=== PATIENT | female | born 1990 | race Caucasian/White ===

== ENCOUNTER 2018-09-02 00:50 | Emergency (ER) | payer OTHER ==
[2018-09-02] MEDS ORDERED: NS 1,000 ML IV ONE (00:55)
--- NOTE | 2018-09-02 01:00 | EDPHY ---
H & P Stated Complaint: near syncope Time Seen by Provider: 09/02/18 00:59 HPI/ROS: Chief Complaint: Dizzy, lightheaded, near syncope HPI: 28-year-old woman with a history of ulcerative colitis was at home cooking when she had sudden onset of lightheadedness and some tunnel vision. She did not lose consciousness although she felt that she would. She sat down felt a little bit better. Patient was seen at [facility] and routine labs were today which were reportedly normal. The no chest pain or palpitations. She has not have a family history of coronary artery disease or sudden cardiac . Does not have a history of similar episodes in the past. Does not believe she is . States she has had a little bit more mucus but no blood per rectum recently. No abnormal vaginal bleeding. No shortness of breath. ROS: 10 systems were reviewed and were negative except those elements noted in the HPI. PMH: Ulcerative colitis Social History: No smoking, no alcohol, no recreational drug use Family History: non-contributory Physical Exam: Gen: Awake, Alert, No Distress HEENT: Nose: no rhinorrhea Eyes: PERRLA, EOMI Mouth: Moist mucosa Neck: Supple, no JVD Chest: nontender, lungs clear to auscultation Heart: S1, S2 normal, no murmur Abd: Soft, non-tender, no guarding Back: no CVA tenderness, no midline tenderness Ext: no edema, non-tender Skin: no rash Neuro: CN II-XII intact, Sensation grossly intact, Strength 5/5 in bilateral upper and lower extremities - Personal History LMP (Females 10-55): IUD In Place Current Tetanus/Diphtheria Vaccine: Yes - Medical/Surgical History Hx Asthma: No Hx Chronic Respiratory Disease: No Hx Diabetes: No Hx Cardiac Disease: No Hx Renal Disease: No Hx Cirrhosis: No Hx Alcoholism: No Hx HIV/AIDS: No Hx Splenectomy or Spleen Trauma: No Other PMH: UC - Social History Smoking Status: Current some day smoker Constitutional: Initial Vital Signs Temperature (C) 36.8 C 09/02/18 00:56 Heart Rate 93 09/02/18 00:56 Respiratory Rate 18 09/02/18 00:56 Blood Pressure 125/54 H 09/02/18 00:56 O2 Sat (%) 100 09/02/18 00:56 O2 Delivery Mode Room Air Allergies/Adverse Reactions: No Known Allergies Allergy (Unverified 09/02/18 00:58) Home Medications: Medication Instructions Recorded Amitriptyline HCl 09/02/18 Humira 09/02/18 Imuran 50 mg (*) 09/02/18 Mesalamine 09/02/18 Ranitidine HCl 09/02/18 Vitamin D3 09/02/18 Medical Decision Making - Diagnostics EKG Interpretation: ECG time 12:59 a.m., sinus rhythm with a rate of 83, normal axis, normal intervals, no acute ST or T-wave changes. Impression: Normal ECG. ED Course/Re-evaluation: 28-year-old woman with a near syncopal episode. Laboratory evaluations are unremarkable. ECG is normal. Vital signs are completely normal. She is complaining of some mild symptoms that she might have a gout ulcerative colitis flare but she has not been having any blood per rectum. Her blood counts are normal and she has no elevation in her white blood cell count. She has been hydrated here. She has ambulated without difficulty. Plan will be for discharge with follow-up with primary care physician. - Data Points Laboratory Results: Laboratory Results 09/02/18 01:10 09/02/18 01:10 09/02/18 09/02/18 09/02/18 01:10 01:10 01:10 WBC 8.42 10^3/uL 10^3/uL (3.80-9.50) RBC 3.95 10^6/uL L 10^6/uL (4.18-5.33) Hgb 12.6 g/dL g/dL (12.6-16.3) Hct 37.0 % L % (38.0-47.0) MCV 93.7 fL fL (81.5-99.8) MCH 31.9 pg pg (27.9-34.1) MCHC 34.1 g/dL g/dL (32.4-36.7) RDW 12.9 % % (11.5-15.2) Plt Count 370 10^3/uL 10^3/uL (150-400) MPV 8.8 fL fL (8.7-11.7) Neut % (Auto) 38.0 % L % (39.3-74.2) Lymph % (Auto) 50.6 % H % (15.0-45.0) [place] % (Auto) 8.7 % % (4.5-13.0) Eos % (Auto) 1.9 % % (0.6-7.6) Baso % (Auto) 0.6 % % (0.3-1.7) Nucleat RBC Rel Count 0.0 % % (0.0-0.2) Absolute Neuts (auto) 3.20 10^3/uL 10^3/uL (1.70-6.50) Absolute Lymphs (auto) 4.26 10^3/uL H 10^3/uL (1.00-3.00) Absolute Monos (auto) 0.73 10^3/uL 10^3/uL (0.30-0.80) Absolute Eos (auto) 0.16 10^3/uL 10^3/uL (0.03-0.40) Absolute Basos (auto) 0.05 10^3/uL 10^3/uL (0.02-0.10) Absolute Nucleated RBC 0.00 10^3/uL 10^3/uL (0-0.01) Immature Gran % 0.2 % % (0.0-1.1) Immature Gran # 0.02 10^3/uL 10^3/uL (0.00-0.10) Sodium 140 mEq/L mEq/L (135-145) Potassium 3.9 mEq/L mEq/L (3.5-5.2) Chloride 104 mEq/L mEq/L (97-110) Carbon Dioxide 26 mEq/l mEq/l (22-31) Anion Gap 10 mEq/L mEq/L (6-14) BUN 13 mg/dL mg/dL (7-23) Creatinine 0.9 mg/dL mg/dL (0.6-1.0) Estimated GFR > 60 Glucose 106 mg/dL H mg/dL (70-100) Calcium 9.3 mg/dL mg/dL (8.5-10.4) Beta HCG, Qual NEGATIVE Medications Given: Discontinued Medications Sodium Chloride (Ns) 1,000 mls @ 0 mls/hr IV ONCE ONE; Wide Open PRN Reason: Protocol Stop: 09/02/18 00:56 Last Admin: 09/02/18 01:02 Dose: 1,000 mls Departure - Departure Disposition: Home, Routine, Self-Care Clinical Impression: Near syncope Condition: Good Instructions: Near Syncope (ED) Additional Instructions: Make sure you drink plenty of fluids. Make sure you get up slowly from a lying down or seated position. Remains stated at the bed for a minute or 2 before you attempt to stand and walk. Follow up with primary care physician in 2-3 days for further evaluation. Return to the emergency department for fainting, chest pain, palpitations, worsening abdominal pain, or any other concerns. Referrals: Caitlyn Zhou MD [Non Staff Provider (MD)] - As per Instructions
[2018-09-02 01:15] LABS: PLATELET COUNT 370 10^3/uL (150-400)
[2018-09-02 01:49] VITALS: BP 103/60
--- NOTE | 2018-09-02 04:34 | CPEKG ---
Test Reason : OPEN Blood Pressure : / mmHG Vent. Rate : 083 BPM Atrial Rate : 084 BPM P-R Int : 164 ms QRS Dur : 079 ms QT Int : 370 ms P-R-T Axes : 077 045 040 degrees QTc Int : 435 ms Sinus rhythm Confirmed by Dhaval Jamil ([id number] on 09/02/2018 4:33:54 AM Referred By: Dhaval Jamil Confirmed By:Dhaval Jamil
== END 2018-09-02 01:53 | disposition home or self-care (01) ==
DX: R55 Syncope and collapse (principal); E86.9 Volume depletion, unspecified